=== PATIENT | female | born 2000 | race African-American/Black ===

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

== ENCOUNTER 2022-02-05 21:35 | Emergency (ER) | payer OTHER | END 2022-02-05 22:58 | disposition home or self-care (01) | LOC: BURERS 21:35 | DX: F12.10 Cannabis abuse, uncomplicated (principal) | CPT/HCPCS: 99284 ==